=== PATIENT | female | born 1980 | race Caucasian/White ===

== ENCOUNTER 2017-02-12 22:09 | Emergency (ER) | payer OTHER | END 2017-02-12 23:24 | disposition home or self-care (01) | LOC: FER 22:09 | DX: M54.12 Radiculopathy, cervical region (principal); R07.9 Chest pain, unspecified; Z88.1 Allergy status to other antibiotic agents | CPT/HCPCS: 93005; J1885; J2930 ==

== ENCOUNTER → 2021-09-27 | Day surgery (SDC) | payer OTHER ==
[~2021-09-27] VITALS: Ht 160 cm; Wt 84.8 kg
[~2021-09-27] MED LIST: COMPRESSION TH1 EACH XX; IBUPROFEN800 M1 PO; PERCOCET 5-3251 EACH PO; PROVENTIL HFA6.7 GM INH; VRAYLAR1.5 MG PO; ZOFRAN4 M1 PO
[2021-09-27 10:36] LABS: HCG (URINE) SCREEN NEGATIVE (NEGATIVE)
== END | disposition home or self-care (01) ==
LOC: FAS 07:53
PROVIDERS: Obstetrics & Gynecology
DX: N93.9 Abnormal uterine and vaginal bleeding, unspecified (principal); J45.909 Unspecified asthma, uncomplicated; F32.A Depression, unspecified; K58.9 Irritable bowel syndrome, unspecified; Z87.891 Personal history of nicotine dependence; Z88.1 Allergy status to other antibiotic agents; Z88.8 Allergy status to other drugs, medicaments and biological substances; Z79.899 Other long term (current) drug therapy
CPT/HCPCS: 84703; 93005; J1100; J1170; J1885; J2250; J2405; J2550; J2704; J2710; J3010; J7120